=== PATIENT | male | born 1940 | race Caucasian/White ===

== ENCOUNTER 2018-08-10 10:03 | Outpatient (RCR) | payer MEDICARE ==
[~2018-08-10 10:03] MED LIST: CEFP500T4 PO; CHLO4TAB PO; HCT25T PO; LISI40TA PO; MECL-124 PO; ROSU10TA12 PO; SCOP1PAT TD; TRIA16.5 NS
== END 2018-08-10 10:52 | disposition home or self-care (01) ==
PROVIDERS: ATTEND Family Medicine
DX: M51.36 Other intervertebral disc degeneration, lumbar region (principal)

== ENCOUNTER 2018-12-18 08:59 | Emergency (ER) | payer MEDICARE ==
[~2018-12-18] VITALS: Ht 175.3 cm; Wt 77.1 kg
--- OUTSIDE RECORDS SUMMARY | 2018-12-18 09:06 | XMS REPORT | Continuity of Care Document ---
Author Author [facility] Organization [facility] Address Unknown Phone Unavailable Allergies Active Description Code Type Severity Reaction Onset Reported/Identified Relationship to Patient Clinical Status Yes NEOPORACIN [id number] BRANDNAME N /A N/A Yes E.E.S. 200 E.E.S. 200 SEVERE Yes BACTRIM DS SEVERE GI PROBLEMS - DIARRH Yes E.E.S. 200 SEVERE GI PROBLEMS - DIARRH Yes MYCINS MYCINS Unknown N/A 10/02/2012 Medications There is no data. Problems Date Dx Coded Attending Type Code Diagnosis Diagnosed By 08/25/1051 HERRERA BADILLO MD Ot M51.36 OTHER INTERVERTEBRAL DISC DEGENERATION, 03/13/2018 Christine Clements 682.9 CELLULITIS AND ABSCESS OF UNSPECIFIED SITES 03/13/2018 Christine Clements L02.91 CUTANEOUS ABSCESS, UNSPECIFIED 03/13/2018 Christine Clements 682.9 CELLULITIS AND ABSCESS OF UNSPECIFIED SITES 03/13/2018 Christine Clements L02.91 CUTANEOUS ABSCESS, UNSPECIFIED 03/21/2018 HERRERA BADILLO 782.9 OTHER SYMPTOMS INVOLVING SKIN AND INTEGUMENTARY TISSUES 03/21/2018 HERRERA BADILLO P54.5 CUTANEOUS HEMORRHAGE 03/21/2018 HERRERA BADILLO T14.8 OTHER INJURY OF UNSPECIFIED BODY REGION 03/21/2018 HERRERA BADILLO 782.9 OTHER SYMPTOMS INVOLVING SKIN AND INTEGUMENTARY TISSUES 03/21/2018 HERRERA BADILLO P54.5 CUTANEOUS HEMORRHAGE 03/21/2018 HERRERA BADILLO T14.8 OTHER INJURY OF UNSPECIFIED BODY REGION 03/21/2018 HERRERA BADILLO 782.9 OTHER SYMPTOMS INVOLVING SKIN AND INTEGUMENTARY TISSUES 03/21/2018 HERRERA BADILLO P54.5 CUTANEOUS HEMORRHAGE 03/21/2018 HERRERA BADILLO T14.8 OTHER INJURY OF UNSPECIFIED BODY REGION 08/10/2018 HERRERA BADILLO MD L Ot M51.36 OTHER INTERVERTEBRAL DISC DEGENERATION, Procedures There is no data. Results Test Result Range D-Dimer - 11/08/16 09:30 DDimer 139.00 ng/mL 21.00-229.00 PSA Yearly Screen - 11/23/16 11:23 PSA TOTAL 5.1 ng/mL 0.0-4.0 Protime - 03/21/18 17:40 INR 1.0 1.0-4.0 Protime 11.5 Sec 9.9-12.8 PTT - 03/21/18 17:40 PTT 31.8 Sec 26.0-38.0 CBC with Auto Diff - 04/05/18 15:03 Baso% 0.30 % 0.00-2.50 Eos 0.4 K/uL 0.0-0.7 Eos% 6.2 % 0.0-7.0 Hct 38.7 % 42.0-52.0 Hgb 13.4 g/dL 14.0-17.0 Lym 1.45 K/uL 0.60-3.40 Lym% 22.6 % 10.0-50.0 MCH 32.4 pg 27.0-31.2 MCHC 34.6 g/dL 32.0-36.0 MCV 93.7 fL 80.0-97.0 [place]% 7.5 % 0.0-12.0 MPV 12.9 fL 7.4-10.0 [place]% 63.4 % 37.0-80.0 Plt 108 K/uL 150-400 RBC 4.13 M/uL 4.20-5.40 RDW 12.9 % 11.6-14.8 WBC 6.41 K/uL 5.00-10.00 [place] 4.06 K/uL 2.00-6.90 [place] 0.5 K/uL 0.0-0.9 Baso 0.0 K/uL 0.0-0.2 Encounters ACCT No. Visit Date/Time Discharge Status Pt. Type Provider Facility Loc./Unit Complaint [id number] 02/16/2017 14:17:02 02/16/2017 23:59:59 CLS Outpatient [place] [id number] 06/21/2018 13:05:00 06/21/2018 23:59:00 DIS Outpatient HERRERA BADILLO [id number] 04/05/2018 15:01:00 04/05/2018 23:59:00 DIS Outpatient HERRERA BADILLO [id number] 03/21/2018 18:10:00 03/21/2018 23:59:00 DIS Outpatient HERRERA BADILLO [id number] 03/13/2018 11:40:00 03/13/2018 23:59:00 DIS Outpatient Christine Clements [id number] 01/30/2018 09:09:00 01/30/2018 23:59:00 DIS Outpatient Priscila Keating [id number] 06/02/2017 00:00:00 06/02/2017 23:59:00 DIS Outpatient HERRERA BADILLO [id number] 05/16/2017 00:00:00 05/16/2017 23:59:00 DIS Outpatient HERRERA BADILLO [id number] 11/23/2016 11:23:00 11/23/2016 23:59:00 DIS Outpatient HERRERA BADILLO [id number] 11/08/2016 09:40:00 11/08/2016 23:59:00 DIS Outpatient HERRERA BADILLO [id number] 08/10/2018 10:03:00 08/10/2018 10:52:00 DIS Outpatient HERRERA BADILLO MD Via [facility] REHAB CHRONIC LBP; DDD [id number] 11/16/2018 10:25:43 Document Registration [id number] 04/17/2018 14:15:52 Document Registration [id number] 04/05/2018 15:14:47 Document Registration [id number] 10/25/2017 10:07:02 Document Registration
[2018-12-18 09:14] LABS: BILIRUBIN,URINE NEGATIVE (NEGATIVE); CLARITY,URINE CLEAR; COLOR,URINE YELLOW; GLUCOSE, URINE (UA) NEGATIVE (NEGATIVE); KETONES,URINE NEGATIVE (NEGATIVE); LEUKOCYTE ESTERASE ,URINE 2+ (NEGATIVE); NITRITE,URINE NEGATIVE (NEGATIVE); PH,URINE 6 (5-9); PROTEIN,URINE 2+ (NEGATIVE); UROBILINOGEN,URINE NORMAL (NORMAL)
[2018-12-18] MEDS ORDERED: FERR325T5 (09:21)
[2018-12-18] MEDS ORDERED: NS IV 1000 ML 1,000 ML IV SCH (09:27)
[2018-12-18] MEDS ORDERED: cefTRIAXone FOR IV USE 1,000 MG in WATER (STERILE) FOR INJECTION 10 ML IV ONE (09:30)
[2018-12-18 09:35] LABS: BACTERIA,URINE FEW /HPF; RBC,URINE >100 /HPF; SQUAMOUS EPITHELIAL CELL,UR 0-2 /HPF
--- NOTE | 2018-12-18 09:38 | ED GU-Female ---
General Chief Complaint: - Urinary Stated Complaint: PAIN IN LOWER BACK/ LAGOS CATHETER PROBLEMS Nursing Triage Note: AMBULATED TO ROOM 06 WITH URINARY CATH IN PLACE. STATES IT WAS PUT IN TUESDAY EVENING AT [facility] AFTER HAVING A COLONOSCOPY THAT AM AND NOT BEING ABLE TO PEE. Nursing Sepsis Screen: Possible Sepsis Risk Source: patient Exam Limitations: no limitations History of Present Illness Date Seen by Provider: Dec 18, 2018 Time Seen by Provider: 09:03 Initial Comments Patient presents to ER by private conveyance with chief complaint of some right back pain and urinary discomfort. He recently had a colonoscopy looking for a source of his anemia outpatient on , 5 days ago. He then on Tuesday could not urinate so went to the ER and had a [place] catheter placed. He went back to the ER because he saw blood in the urine and said it was probably from the trauma of having a [place] catheter placed. He is in today feeling like he has some subjective chills and fevers feeling flushed and has quite a bit of pain now on his right flank that started up late last night. He has not taken anything for the pain. No Tylenol or Motrin. He does not take aspirin for the past week and a half since his oncologist are working him up for his thrombocytopenia and anemia. The colonoscopy was unremarkable. He follows Dr. Carolina urology and had plans to see him in clinic today or tomorrow but when he called the clinic and inform them of his symptoms they told him to come to the ER instead. He denies a history of prostatism. He also has noticed today that his urine became cloudy. Allergies and Home Medications Allergies Uncoded Allergies: MYCINS (Allergy, Unknown, 10/02/12) Home Medications Cefprozil 500 Mg Tablet, 1 EACH PO BID FOR INFECTION Prescribed by: KAUSHAL MCGARRY on 10/02/122248 Chlorpheniramine Maleate 4 Mg Tablet, 4 MG PO DAILY, (Reported) Hydrochlorothiazide 25 Mg Tablet, 1 EACH PO DAILY, (Reported) Lisinopril 40 Mg Tablet, 40 MG PO DAILY, (Reported) Meclizine Hcl 25 Mg Tab, 1-2 TAB PO Q 4-6 HOURS PRN FOR DIZZINESS Prescribed by: KAUSHAL MCGARRY on 10/02/122248 Rosuvastatin Calcium 10 Mg Tablet, 1 EACH PO DAILY, (Reported) Scopolamine Hcl 1 Patch .72 H Patch.td72, 1 EA TD Q3D FOR DIZZINESS Prescribed by: KAUSHAL MCGARRY on 10/02/122248 Triamcinolone Acetonide 16.5 Gm [place], 16.5 GM NS BID FOR SINUSES Prescribed by: KAUSHAL MCGARRY on 10/02/122248 Patient Home Medication List Home Medication List Reviewed: Yes Review of Systems Review of Systems Constitutional: No chills, No diaphoresis EENTM: No ear discharge, No ear pain Respiratory: No cough, No short of breath Cardiovascular: No edema, No palpitations Gastrointestinal: No abdominal pain, No constipation, No diarrhea, No nausea Genitourinary: denies discharge, denies dysuria Musculoskeletal: No back pain, No joint pain Skin: No dryness, No pruritus, No rash Psychiatric/Neurological: Denies Headache, Denies Numbness Past Ijnkvyz-Qpakms-Kdcdoa Hx Patient Social History Alcohol Use: Denies Use Recreational Drug Use: No Recent Foreign Travel: No Contact w/Someone Who Travel: No Recent Infectious Disease Expo: No Immunizations Up To Date Tetanus Booster (TDap): Unknown Date of Pneumonia Vaccine: Jun 26, 2011 Date of Influenza Vaccine: Jun 26, 2012 Past Medical History Surgeries: Yes (HEART STENT, COLONOSCOPY) Respiratory: No Cardiac: Yes Neurological: No Reproductive Disorders: No Sexually Transmitted Disease: No HIV/AIDS: No Genitourinary: Yes Gastrointestinal: No Musculoskeletal: No Chronic Back Pain Endocrine: No Cataract Loss of Vision: Denies Hearing Impairment: Denies Cancer: No Psychosocial: No Integumentary: No Blood Disorders: No Adverse Reaction/Blood Tranf: No Physical Exam Vital Signs Vital Signs - First Documented 12/18/18 09:00 Temp 95.8 Pulse 96 Resp 16 B/P (MAP) 156/78 (104) Pulse Ox 97 O2 Delivery Room Air Capillary Refill : Less Than 3 Seconds Height, Weight, BMI Height: 5'9.00" Weight: 170lbs. oz. 77.639287mn; BMI Method:Estimated General Appearance: WD/WN, no apparent distress HEENT: PERRL/EOMI, pharynx normal Cardiovascular: normal peripheral pulses, regular rate, rhythm, no edema Respiratory: lungs clear, normal breath sounds, no respiratory distress, no accessory muscle use Gastrointestinal: normal bowel sounds, soft, tenderness (epigastric) Back: normal inspection, no CVA tenderness Extremities: non-tender, normal inspection, no pedal edema, normal capillary refill Neurologic/Psychiatric: alert, normal mood/affect, oriented x 3 Skin: normal color, warm/dry Focused Exam Lactate Level 12/18/18 09:30: Lactic Acid Level 1.30 Lactic Acid Level Laboratory Tests Test 12/18/18 09:30 Lactic Acid Level 1.30 MMOL/L (0.50-2.00) Progress/Results/Core Measures Suspected Sepsis Recent Fever Within 48 Hours: No Infection Criteria Present: Suspected New Infection New/Unexplained Altered Menta: No Sepsis Screen: Possible Sepsis Risk SIRS Temperature:95.8 Pulse: 96 Respiratory Rate: 16 Laboratory Tests 12/18/18 09:30: White Blood Count 5.3 Blood Pressure 156 /78 Mean: 104 12/18/18 09:30: Lactic Acid Level 1.30 Laboratory Tests 12/18/18 09:30: Creatinine 0.92, INR Comment 1.0, Platelet Count 90L, Total Bilirubin 0.5 Results/Orders Lab Results Laboratory Tests Test 12/18/18 09:07 12/18/18 09:30 Range/Units Urine Color YELLOW Urine Clarity CLEAR Urine pH 6 5-9 Urine Specific [place] 1.015 L 1.016-1.022 Urine Protein 2+ H NEGATIVE Urine Glucose (UA) NEGATIVE NEGATIVE Urine Ketones NEGATIVE NEGATIVE Urine Nitrite NEGATIVE NEGATIVE Urine Bilirubin NEGATIVE NEGATIVE Urine Urobilinogen NORMAL NORMAL MG/DL Urine Leukocyte Esterase 2+ H NEGATIVE Urine RBC (Auto) 5+ H NEGATIVE Urine RBC >100 H /HPF Urine WBC 5-10 H /HPF Urine Squamous Epithelial Cells 0-2 /HPF Urine Crystals NONE /LPF Urine Bacteria FEW H /HPF Urine Casts NONE /LPF Urine Mucus NEGATIVE /LPF Urine Culture Indicated YES White Blood Count 5.3 4.3-11.0 10^3/uL Red Blood Count 3.67 L 4.35-5.85 10^6/uL Hemoglobin 11.9 L 13.3-17.7 G/DL Hematocrit 35 L 40-54 % Mean Corpuscular Volume 95 80-99 FL Mean Corpuscular Hemoglobin 32 25-34 PG Mean Corpuscular Hemoglobin Concent 34 32-36 G/DL Red Cell Distribution Width 13.9 10.0-14.5 % Platelet Count 90 L 130-400 10^3/uL Mean Platelet Volume 11.2 H 7.4-10.4 FL Neutrophils (%) (Auto) 71 42-75 % Lymphocytes (%) (Auto) 17 12-44 % Monocytes (%) (Auto) 8 0-12 % Eosinophils (%) (Auto) 4 0-10 % Basophils (%) (Auto) 0 0-10 % Neutrophils # (Auto) 3.8 1.8-7.8 X 10^3 Lymphocytes # (Auto) 0.9 L 1.0-4.0 X 10^3 Monocytes # (Auto) 0.4 0.0-1.0 X 10^3 Eosinophils # (Auto) 0.2 0.0-0.3 10^3/uL Basophils # (Auto) 0.0 0.0-0.1 10^3/uL Prothrombin Time 13.8 12.2-14.7 SEC INR Comment 1.0 0.8-1.4 Activated Partial Thromboplast Time 37 H 24-35 SEC Sodium Level 139 135-145 MMOL/L Potassium Level 3.6 3.6-5.0 MMOL/L Chloride Level 105 98-107 MMOL/L Carbon Dioxide Level 25 21-32 MMOL/L Anion Gap 9 5-14 MMOL/L Blood Urea Nitrogen 13 7-18 MG/DL Creatinine 0.92 0.60-1.30 MG/DL Estimat Glomerular Filtration Rate > 60 BUN/Creatinine Ratio 14 Glucose Level 108 H 70-105 MG/DL Lactic Acid Level 1.30 0.50-2.00 MMOL/L Calcium Level 9.0 8.5-10.1 MG/DL Corrected Calcium 9.0 8.5-10.1 MG/DL Total Bilirubin 0.5 0.1-1.0 MG/DL Aspartate Amino Transf (AST/SGOT) 16 5-34 U/L Alanine Aminotransferase (ALT/SGPT) 14 0-55 U/L Alkaline Phosphatase 82 40-136 U/L Total Protein 6.2 L 6.4-8.2 GM/DL Albumin 4.0 3.2-4.5 GM/DL Lipase 12 8-78 U/L My Orders Orders - ELSI PONCE Ua Culture If Indicated (12/18/18 09:00) Cbc With Automated Diff (12/18/18 09:27) Comprehensive Metabolic Panel (12/18/18 09:27) Blood Culture (12/18/18 09:27) Urine Culture (12/18/18 09:27) Protime With Inr (12/18/18:27) Partial Thromboplastin Time (12/18/18 09:27) Saline Lock/Iv-Start (12/18/18 09:27) Lactic Acid Analyzer (12/18/18 09:27) Ns Iv 1000 Ml (Sodium Chloride 0.9%) (12/18/18 09:27) Ceftriaxone For Iv Use (Rocephin For I (12/18/18 09:30) Ua Culture If Indicated (12/18/18 09:28) Urine Culture (12/18/18 09:07) Lipase (12/18/18 09:40) Medications Given in ED Current Medications Medications Dose Ordered Sig/Marcela Route Start Time Stop Time Status Last Admin Dose Admin Ceftriaxone Sodium 1000 mg/ Sterile Water 10 ml @ 200 mls/hr ONCE ONCE IV 12/18/18 09:30 12/18/18 09:32 DC 12/18/18 09:57 200 MLS/HR Vital Signs/I&O 12/18/18 09:00 Temp 95.8 Pulse 96 Resp 16 B/P (MAP) 156/78 (104) Pulse Ox 97 O2 Delivery Room Air Capillary Refill : Less Than 3 Seconds Blood Pressure Mean: 104 Progress Note : Time: 09:37 Progress Note Mildly elevated heart rate running between 88 and 92. If he has an elevated white count he would qualify for sepsis. We'll get labs, blood culture and give him some Rocephin for anticipated bladder infection. We'll also check a lipase. Consults Consults : Consulting Physician: TARIQ CAROLINA MD Consults Notes Discussed the case and he recommends that we initiate Flomax. It may take up to 3 days for Flomax to exert and the fact so we could leave the [place] catheter in until he is seen in the clinic on Tuesday or or weak and have it out today is not tender be a higher risk for having a reinsertion of a catheter. The trade-off would be the patient would have a less risk of worsening infection. He agrees with Rocephin and initiating oral antibiotics and outpatient follow-up in 2-3 days. After discussing this plan with the patient the patient would elect to have the [place] catheter out today as he finds the risk of infection more worrisome reinsertion of [place] catheter. Departure Impression Primary Impression: Catheter-associated urinary tract infection Qualified Codes: T83.511A - Infection and inflammatory reaction due to indwelling urethral catheter, initial encounter; N39.0 - Urinary tract infection , site not specified Additional Impressions: Urinary retention Thrombocytopenia Disposition: 01 HOME, SELF-CARE Condition: Stable Departure-Patient Inst. Decision time for Depature: 10:22 Referrals: HERRERA BADILLO MD (PCP) Primary Care Physician TARIQ CAROLINA MD Patient Instructions: Urinary Tract Infection, Adult (DC), Urinary Obstruction (DC) Add. Discharge Instructions: Drink plenty of fluids. Call Dr. Carolina and request an appointment on Tuesday or of this week to follow-up. 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 Carolina. If you have difficulty urinating or you like you cannot empty your bladder then you should return to the nearest ER for reevaluation. If you begin to have fevers, nausea vomiting or severe abdominal pain you should also return to the nearest ER for further evaluation. Use Tylenol 1000 mg every 8 hours as necessary for pain. All discharge instructions reviewed with patient and/or family. Voiced understanding. Scripts Cephalexin (Cephalexin) 500 Mg Tablet 500 MG PO BID for 7 Days, #14 TAB 0 Refills Prov: ELSI PONCE 12/18/18 Tamsulosin HCl (Flomax) 0.4 Mg Cap 0.4 MG PO HS for 14 Days, #14 CAP 0 Refills Prov: ELSI PONCE 12/18/18 ELSI PONCE Dec 18, 2018 09:38
[2018-12-18 09:44] LABS: BASOPHILS % (AUTO) 0 % (0-10); EOSINOPHILS # (AUTO) 0.2 10^3/uL (0.0-0.3); EOSINOPHILS % (AUTO) 4 % (0-10); HEMATOCRIT 35 % (40-54); HEMOGLOBIN 11.9 G/DL (13.3-17.7); LYMPHOCYTES # (AUTO) 0.9 X 10^3 (1.0-4.0); LYMPHOCYTES % (AUTO) 17 % (12-44); MEAN CORPUSCULAR HEMOGLOBIN 32 PG (25-34); MEAN CORPUSCULAR HGB CONC 34 G/DL (32-36); MEAN CORPUSCULAR VOLUME 95 FL (80-99); MEAN PLATELET VOLUME 11.2 FL (7.4-10.4); MONOCYTES # (AUTO) 0.4 X 10^3 (0.0-1.0); MONOCYTES % (AUTO) 8 % (0-12); NEUTROPHILS # (AUTO) 3.8 X 10^3 (1.8-7.8); NEUTROPHILS % (AUTO) 71 % (42-75); PLATELET COUNT 90 10^3/uL (130-400); RED CELL DISTRIBUTION WIDTH 13.9 % (10.0-14.5); WHITE BLOOD COUNT 5.3 10^3/uL (4.3-11.0)
[2018-12-18 09:57] LABS: PROTHROMBIN TIME PATIENT 13.8 SEC (12.2-14.7)
--- NOTE | 2018-12-18 10:00 | NUR ---
WARM BLANKET AND REMOTE GIVEN TO PT.
[2018-12-18 10:04] LABS: ALANINE AMINOTRANSFERASE 14 U/L (0-55); ALKALINE PHOSPHATASE 82 U/L (40-136); BILIRUBIN,TOTAL 0.5 MG/DL (0.1-1.0); BUN/CREATININE RATIO 14; CARBON DIOXIDE 25 MMOL/L (21-32); CHLORIDE 105 MMOL/L (98-107); CREATININE SERUM 0.92 MG/DL (0.60-1.30); GFR ESTIMATED > 60; GLUCOSE 108 MG/DL (70-105); LIPASE 12 U/L (8-78); POTASSIUM 3.6 MMOL/L (3.6-5.0); SODIUM 139 MMOL/L (135-145); TOTAL PROTEIN 6.2 GM/DL (6.4-8.2)
--- NOTE | 2018-12-18 10:20 | NUR ---
IN ROOM TALKING TO PT AT THIS TIME.
[2018-12-18] MEDS ORDERED: TAMS0.4C98 PO (10:25)
[2018-12-18] MEDS ORDERED: CEPH500T PO (10:25)
[2018-12-18 10:37] VITALS: BP 138/78
== END 2018-12-18 10:37 | disposition home or self-care (01) ==
LOC: EDUNIT# 08:59 → ER 09:02
DX: T83.511A Infection and inflammatory reaction due to indwelling urethral catheter, initial encounter (principal); N39.0 Urinary tract infection, site not specified; D69.6 Thrombocytopenia, unspecified; Z88.1 Allergy status to other antibiotic agents; Z95.5 Presence of coronary angioplasty implant and graft
CPT/HCPCS: 36415; 80053; 81000; 83605; 83690; 85025; 85610; 85730; 87040; 87088

== ENCOUNTER 2019-03-23 08:34 | Inpatient (IN) | payer MEDICARE ==
[~2019-03-23] VITALS: Ht 190.5 cm; Wt 101.7 kg
[~2019-03-23 08:34] MED LIST changes: +CEPH500T PO; +FERR325T5 PO; +TAMS0.4C98 PO
--- OUTSIDE RECORDS SUMMARY | 2019-03-23 08:39 | XMS REPORT | Continuity of Care Document ---
Author Organization Unknown Address Unknown Allergies Active Description Code Type Severity Reaction Onset Reported/Identified Relationship to Patient Clinical Status Yes NEOPORACIN [id number] BRANDNAME N/A N/A Yes E.E.S. 200 E.E.S. 200 SEVERE Yes BACTRIM DS SEVERE GI PROBLEMS - DIARRH Yes E.E.S. 200 SEVERE GI PROBLEMS - DIARRH Yes MYCINS MYCINS Unknown N/A 10/02/2012 Medications There is no data. Problems Date Dx Coded Attending Type Code Diagnosis Diagnosed By 08/25/1051 ABY MICHELE, HERRERA Parker Ot M51.36 OTHER INTERVERTEBRAL DISC DEGENERATION, 03/13/2018 Christine lCements 682.9 CELLULITIS AND ABSCESS OF UNSPECIFIED SITES [...] OTHER INJURY OF UNSPECIFIED BODY REGION 08/10/2018 ABY MICHELE, HERRERA L Ot M51.36 OTHER INTERVERTEBRAL DISC DEGENERATION, 12/18/2018 ELSI PONCE MD Ot D69.6 THROMBOCYTOPENIA, UNSPECIFIED 12/18/2018 ELSI PONCE MD Ot M54.5 LOW BACK PAIN 12/18/2018 ELSI PONCE MD Ot N39.0 URINARY TRACT INFECTION, SITE NOT SPECIF 12/18/2018 ELSI PONCE MD Ot T83.511A I/I REACT D/T INDWELLING URETHRAL CATHET 12/18/2018 ELSI PONCE MD Ot Z88.1 ALLERGY STATUS TO OTHER ANTIBIOTIC AGENT 12/18/2018 ELSI PONCE MD Ot Z95.5 PRESENCE OF CORONARY ANGIOPLASTY IMPLANT 12/20/2018 ELSI PONCE MD Ot D69.6 THROMBOCYTOPENIA, UNSPECIFIED 12/20/2018 ELSI PONCE MD Ot M54.5 LOW BACK PAIN 12/20/2018 ELSI PONCE MD Ot N39.0 URINARY TRACT INFECTION, SITE NOT SPECIF 12/20/2018 ELSI PONCE MD Ot T83.511A I/I REACT D/T INDWELLING URETHRAL CATHET 12/20/2018 ELSI PONCE MD Ot Z88.1 ALLERGY STATUS TO OTHER ANTIBIOTIC AGENT 12/20/2018 ELSI PONCE MD Ot Z95.5 PRESENCE OF CORONARY ANGIOPLASTY IMPLANT Procedures There is no data. Results Test [...] 34.6 g/dL 32.0-36.0 MCV 93.7 fL 80.0-97.0 [place]% 7.5 % 0.0-12.0 MPV 12.9 fL 7.4-10.0 [place]% 63.4 % 37.0-80.0 Plt 108 K/uL 150-400 RBC 4.13 M/uL 4.20-5.40 RDW 12.9 % 11.6-14.8 WBC 6.41 K/uL 5.00-10.00 [place] 4.06 K/uL 2.00-6.90 [place] 0.5 K/uL 0.0-0.9 Baso 0.0 K/uL 0.0-0.2 Complete urinalysis with reflex to culture - 12/18/18 09:07 Urine color determination YELLOW NRG Urine clarity determination CLEAR NRG Urine pH measurement by test strip 6 5-9 Specific gravity of urine by test strip 1.015 1.016-1.022 Urine protein assay by test strip, semi-quantitative 2+ NEGATIVE Urine glucose detection by automated test strip NEGATIVE NEGATIVE Erythrocytes detection in urine sediment by light microscopy 5+ NEGATIVE Urine ketones detection by automated test strip NEGATIVE NEGATIVE Urine nitrite detection by test strip NEGATIVE NEGATIVE Urine total bilirubin detection by test strip NEGATIVE NEGATIVE Urine urobilinogen measurement by automated test strip (mass/volume) NORMAL NORMAL Urine leukocyte esterase detection by dipstick 2+ NEGATIVE Automated urine sediment erythrocyte count by microscopy (number/high power field) > [HPF] NRG Automated urine sediment leukocyte count by microscopy (number/high power field) [HPF] NRG Bacteria detection in urine sediment by light microscopy FEW NRG Squamous epithelial cells detection in urine sediment by light microscopy 0-2 NRG Crystals detection in urine sediment by light microscopy NONE NRG Casts detection in urine sediment by light microscopy NONE NRG Mucus detection in urine sediment by light microscopy NEGATIVE NRG Complete urinalysis with reflex to culture YES NRG Bacterial urine culture - 12/18/18 09:07 Bacterial urine culture NG NRG Complete blood count (CBC) with automated white blood cell (WBC) differential - 12/18/18 09:30 Blood leukocytes automated count (number/volume) 5.3 10*3/uL 4.3-11.0 Blood erythrocytes automated count (number/volume) 3.67 10*6/uL 4.35-5.85 Venous blood hemoglobin measurement (mass/volume) 11.9 g/dL 13.3-17.7 Blood hematocrit (volume fraction) 35 % 40-54 Automated erythrocyte mean corpuscular volume 95 [foz_us] 80-99 Automated erythrocyte mean corpuscular hemoglobin (mass per erythrocyte) 32 pg 25-34 Automated erythrocyte mean corpuscular hemoglobin concentration measurement (mass/volume) 34 g/dL 32-36 Automated erythrocyte distribution width ratio 13.9 % 10.0- 14.5 Automated blood platelet count (count/volume) 90 10*3/uL 130- 400 Automated blood platelet mean volume measurement 11.2 [foz_us] 7.4-10.4 Automated blood neutrophils/100 leukocytes 71 % 42-75 Automated blood lymphocytes/100 leukocytes 17 % 12-44 Blood monocytes/100 leukocytes 8 % 0-12 Automated blood eosinophils/100 leukocytes 4 % 0-10 Automated blood basophils/100 leukocytes 0 % 0-10 Blood neutrophils automated count (number/volume) 3.8 10*3 1.8-7.8 Blood lymphocytes automated count (number/volume) 0.9 10*3 1.0-4.0 Blood monocytes automated count (number/volume) 0.4 10*3 0.0- 1.0 Automated eosinophil count 0.2 10*3/uL 0.0-0.3 Automated blood basophil count (count/volume) 0.0 10*3/uL 0.0-0.1 Blood lactic acid measurement (moles/volume) - 12/18/18 09:30 Blood lactic acid measurement (moles/volume) 1.30 mmol/L 0.50- 2.00 PT panel in platelet poor plasma by coagulation assay - 12/18/18 09:30 Prothrombin time (PT) in platelet poor plasma by coagulation assay 13.8 s 12.2-14.7 INR in platelet poor plasma or blood by coagulation assay 1.0 0.8-1.4 Activated partial thromboplastin time (aPTT) in platelet poor plasma bycoagulation assay - 12/18/18 09:30 Activated partial thromboplastin time (aPTT) in platelet poor plasma bycoagulation assay 37 s 24-35 Comprehensive metabolic panel - 12/18/18 09:30 Serum or plasma sodium measurement (moles/volume) 139 mmol/L 135-145 Serum or plasma potassium measurement (moles/volume) 3.6 mmol/L 3.6-5.0 Serum or plasma chloride measurement (moles/volume) 105 mmol/L 98-107 Carbon dioxide 25 mmol/L 21-32 Serum or plasma anion gap determination (moles/volume) 9 mmol/L 5-14 Serum or plasma urea nitrogen measurement (mass/volume) 13 mg/dL 7-18 Serum or plasma creatinine measurement (mass/volume) 0.92 mg/dL 0.60-1.30 Serum or plasma urea nitrogen/creatinine mass ratio 14 NRG Serum or plasma creatinine measurement with calculation of estimated glomerular filtration rate > NRG Serum or plasma glucose measurement (mass/volume) 108 mg/dL 70-105 Serum or plasma calcium measurement (mass/volume) 9.0 mg/dL 8.5-10.1 Serum or plasma total bilirubin measurement (mass/volume) 0.5 mg/dL 0.1-1.0 Serum or plasma alkaline phosphatase measurement (enzymatic activity/volume) 82 U/L 40-136 Serum or plasma aspartate aminotransferase measurement (enzymatic activity/volume) 16 U/L 5-34 Serum or plasma alanine aminotransferase measurement (enzymatic activity/volume) 14 U/L 0-55 Serum or plasma protein measurement (mass/volume) 6.2 g/dL 6.4-8.2 Serum or plasma albumin measurement (mass/volume) 4.0 g/dL 3.2-4.5 CALCIUM CORRECTED 9.0 mg/dL 8.5-10.1 Lipase - 12/18/18 09:30 Lipase 12 U/L 8-78 Bacterial blood culture - 12/18/18 09:30 Bacterial blood culture NG NRG Bacterial blood culture - 12/18/18 09:50 Bacterial blood culture NG NRG Encounters ACCT No. Visit Date/Time Discharge Status Pt. Type Provider Facility Loc./Unit Complaint [id number] 02/16/2017 14:17:02 02/16/2017 23:59:59 CLS Outpatient Janes Can [id number] 06/21/2018 13:05:00 06/21/2018 23:59:00 DIS Outpatient HERRERA BADILLO [id number] 04/05/2018 15:01:00 04/05/2018 23:59:00 DIS Outpatient BADILLO HERRERA [id number] 03/21/2018 18:10:00 03/21/2018 23:59:00 DIS Outpatient HERRERA BADILLO [id number] 03/13/2018 11:40:00 03/13/2018 23:59:00 DIS Outpatient Christine Clements [id number] 01/30/2018 09:09:00 01/30/2018 23:59:00 DIS Outpatient Priscila Keating [id number] 06/02/2017 00:00:00 06/02/2017 23:59:00 DIS Outpatient HERRERA BADILLO [id number] 05/16/2017 00:00:00 05/16/2017 23:59:00 DIS Outpatient HERRERA BADILLO [id number] 11/23/2016 11:23:00 11/23/2016 23:59:00 DIS Outpatient HERRERA BADILLO [id number] 11/08/2016 09:40:00 11/08/2016 23:59:00 DIS Outpatient HERRERA BADILLO [id number] 12/18/2018 09:02:00 12/18/2018 10:37:00 DIS Emergency ROSARIO MICHELE, ELSI Bowser [facility] ER PAIN IN LOWER BACK/ LAGOS CATHETER PROBLEMS [id number] 08/10/2018 10:03:00 08/10/2018 10:52:00 DIS Outpatient HERRERA BADILLO MD [facility] REHAB CHRONIC LBP; DDD [id number] 11/16/2018 10:25:43 Document Registration [id number] 04/17/2018 14:15:52 Document Registration [id number] 04/05/2018 15:14:47 Document Registration [id number] 10/25/2017 10:07:02 Document Registration
[2019-03-23 09:33] LABS: BASOPHILS % (AUTO) 1 % (0-10); EOSINOPHILS # (AUTO) 0.3 10^3/uL (0.0-0.3); EOSINOPHILS % (AUTO) 4 % (0-10); HEMATOCRIT 41 % (40-54); HEMOGLOBIN 14.1 G/DL (13.3-17.7); LYMPHOCYTES % (AUTO) 17 % (12-44); MEAN CORPUSCULAR HEMOGLOBIN 32 PG (25-34); MEAN CORPUSCULAR HGB CONC 35 G/DL (32-36); MEAN CORPUSCULAR VOLUME 93 FL (80-99); MEAN PLATELET VOLUME 11.8 FL (7.4-10.4); MONOCYTES # (AUTO) 0.5 X 10^3 (0.0-1.0); MONOCYTES % (AUTO) 9 % (0-12); NEUTROPHILS # (AUTO) 4.1 X 10^3 (1.8-7.8); NEUTROPHILS % (AUTO) 69 % (42-75); PLATELET COUNT 113 10^3/uL (130-400); RED CELL DISTRIBUTION WIDTH 13.9 % (10.0-14.5); WHITE BLOOD COUNT 5.9 10^3/uL (4.3-11.0)
[2019-03-23] MEDS ORDERED: LORA10CA PO (09:38)
[2019-03-23] MEDS ORDERED: ACET-2267 PO (09:38)
[2019-03-23] MEDS ORDERED: RANI150T46 PO (09:38)
[2019-03-23] MEDS ORDERED: FINA5TAB PO (09:38)
[2019-03-23] MEDS ORDERED: DOXA2TAB PO (09:38)
[2019-03-23] MEDS ORDERED: NAPR220C11 PO (09:38)
[2019-03-23 09:44] LABS: ALANINE AMINOTRANSFERASE 19 U/L (0-55); ALBUMIN 4.2 GM/DL (3.2-4.5); ALKALINE PHOSPHATASE 72 U/L (40-136); BILIRUBIN,TOTAL 0.4 MG/DL (0.1-1.0); BUN/CREATININE RATIO 29; CALCIUM 9.3 MG/DL (8.5-10.1); CARBON DIOXIDE 21 MMOL/L (21-32); CHLORIDE 105 MMOL/L (98-107); CREATININE SERUM 0.98 MG/DL (0.60-1.30); GFR ESTIMATED > 60; GLUCOSE 108 MG/DL (70-105); POTASSIUM 4.1 MMOL/L (3.6-5.0); SODIUM 137 MMOL/L (135-145); TOTAL PROTEIN 6.5 GM/DL (6.4-8.2)
[2019-03-23] MEDS ORDERED: LIDOCAINE UROJET 2% GEL 10 ML PKG TOP ONE (09:45)
[2019-03-23] MEDS ORDERED: fentaNYL INJECTION 100 MCG/2 ML AMP IVP STA (09:45)
[2019-03-23 09:59] LABS: BILIRUBIN,URINE NEGATIVE (NEGATIVE); CLARITY,URINE BLOODY; COLOR,URINE RED; GLUCOSE, URINE (UA) NEGATIVE (NEGATIVE); KETONES,URINE NEGATIVE (NEGATIVE); LEUKOCYTE ESTERASE ,URINE NEGATIVE (NEGATIVE); NITRITE,URINE NEGATIVE (NEGATIVE); PH,URINE 7 (5-9); PROTEIN,URINE 4+ (NEGATIVE); UROBILINOGEN,URINE NORMAL (NORMAL)
--- NOTE | 2019-03-23 10:02 | ED GU-Male ---
General Chief Complaint: - Urinary Stated Complaint: BLOOD IN URINE Nursing Triage Note: PT PRESENTS TO ED WITH COMPLAINTS OF BLOOD IN HIS URINE SINCE TUESDAY NIGHT. PT REPORTS IT HAS PROGRESSIVELY GOTTEN WORSE AND NOTICED BLOOD CLOTS IN HIS URINE TODAY. PT ALSO REPORTS INTERMITTENT R FLANK PAIN X 2 DAYS. Source: patient Exam Limitations: no limitations (ERNESTINA ROMERO MEDICAL STUDENT) History of Present Illness Date Seen by Provider: Mar 23, 2019 Time Seen by Provider: 09:30 Initial Comments Pt presents to ED this morning c/o significant blood in his urine since Tuesday night. He waited until today to come in because he was in [place] this week and hoped to get an appointment with Dr. Borrero. He is in no appreciable pain, just notes some slight bladder irritation and occasional dull right flank pain. Pt reports that he also had blood in his urine in November 2018, which was suspected to be a UTI. After treatment, the bloody urine resolved and he has had no episodes until this one. He describes today's urine as far more bloody than in November, even noting blood clots this morning. Reports no inciting event or trauma. Denies urinary urgency, burning, or fever. Denies chest pain, SOB, or abdominal pain. Pt takes low dose aspirin every other day, but denies the use of blood thinners. He does have a long history of thrombocytopenia, which has been extensively worked up by oncology. Timing/Duration: week, getting worse Severity/Quality: severe (amount of blood), full Location: suprapubic, right flank Radiation: none Activities at Onset: none Prior Genitourinary Problems: similar symptoms (blood in urine in November 2018) Associated Symptoms: No dysuria, No fever/chills, No loss of bladder control, No urinary frequency (ERNESTINA ROMERO MEDICAL STUDENT) Modifying Factors: Improves With Other (no exacerbating or relieving factors) (KEVAN MARAVILLA MD) Allergies and Home Medications Allergies Uncoded Allergies: MYCINS (Allergy, Unknown, 10/02/12) Home Medications Cefprozil 500 Mg Tablet, 1 EACH PO BID FOR INFECTION Prescribed by: KAUSHAL MCGARRY on 10/02/12 3443 Cephalexin 500 Mg Tablet, 500 MG PO BID Prescribed by: ELSI PONCE on 12/18/18 1025 Chlorpheniramine Maleate 4 Mg Tablet, 4 MG PO DAILY, (Reported) Hydrochlorothiazide 25 Mg Tablet, 1 EACH PO DAILY, (Reported) Lisinopril 40 Mg Tablet, 40 MG PO DAILY, (Reported) Meclizine Hcl 25 Mg Tab, 1-2 TAB PO Q 4-6 HOURS PRN FOR DIZZINESS Prescribed by: KAUSHAL MCGARRY on 10/02/122248 Rosuvastatin Calcium 10 Mg Tablet, 1 EACH PO DAILY, (Reported) Scopolamine Hcl 1 Patch .72 H Patch.td72, 1 EA TD Q3D FOR DIZZINESS Prescribed by: KAUSHAL MCGARRY on 10/02/122248 Tamsulosin HCl 0.4 Mg Cap, 0.4 MG PO HS Prescribed by: ELSI PONCE on 12/18/18 1025 Triamcinolone Acetonide 16.5 Gm Farber, 16.5 GM NS BID FOR SINUSES Prescribed by: KAUSHAL MCGARRY on 10/02/122248 Patient Home Medication List Home Medication List Reviewed: Yes (ERNESTINA ROMERO MEDICAL STUDENT) Home Medication List Reviewed: Yes (KEVAN MARAVILLA MD) Review of Systems Review of Systems Constitutional: No chills, No fever EENTM: no symptoms reported Respiratory: No short of breath Cardiovascular: No chest pain Gastrointestinal: No abdominal pain, No constipation, No diarrhea, No nausea, No vomiting Genitourinary: denies dysuria; hematuria (gross); denies urgency Musculoskeletal: back pain (right flank pain) Skin: no symptoms reported Psychiatric/Neurological: No Symptoms Reported Endocrine: No Symptoms Reported Hematologic/Lymphatic: No Symptoms Reported (ERNESTINA ROMERO MEDICAL STUDENT) All Other Systemes Reviewed Negative Unless Noted: Yes (KEVAN MARAVILLA MD) Past Kiskdrt-Xrsbch-Dmrwrk Hx Past Med/Social Hx: Reviewed Nursing Past Med/Soc Hx (KEVAN MARAVILLA MD) Patient Social History Alcohol Use: Denies Use Recreational Drug Use: No Smoking Status: Current Everyday Smoker (63 yr Hx; 1/2 ppd) Type Used: Cigarettes 2nd Hand Smoke Exposure: No Recent Foreign Travel: No Contact w/Someone Who Travel: No Recent Infectious Disease Expo: No (ERNESTINA ROMERO MEDICAL STUDENT) Immunizations Up To Date Tetanus Booster (TDap): Unknown Date of Pneumonia Vaccine: Jun 26, 2011 Date of Influenza Vaccine: Jun 26, 2012 (ERNESTINA ROMERO MEDICAL STUDENT) Past Medical History Surgeries: Yes (HEART STENT, COLONOSCOPY, BACK, BLOOD CLOT REMOVED FROM R LEG, HAND) Cardiac (stent), Gallbladder, Orthopedic Respiratory: No Cardiac: Yes High Cholesterol, Hypertension Neurological: No Reproductive Disorders: No Sexually Transmitted Disease: No HIV/AIDS: No Genitourinary: Yes Prostate Problems (BPH), Bladder Infection Gastrointestinal: No Musculoskeletal: No Chronic Back Pain Endocrine: No Cataract Loss of Vision: Denies Hearing Impairment: Denies Cancer: No Psychosocial: No Integumentary: No Blood Disorders: No Adverse Reaction/Blood Tranf: No (ERNESTINA ROMERO MEDICAL STUDENT) Family Medical History Reviewed Nursing Family Hx (KEVAN MARAVILLA MD) Physical Exam Vital Signs Vital Signs - First Documented 03/23/19 09:25 Temp 97.8 Pulse 82 Resp 20 B/P (MAP) 140/70 (93) Pulse Ox 97 (KEVAN MARAVILLA MD) Vital Signs Capillary Refill : Less Than 3 Seconds (ERNESTINA ROMERO MEDICAL STUDENT) Height, Weight, BMI Height: 6'3.00" Weight: 225lbs. oz. 102.376464kd; BMI Method:Stated General Appearance: no apparent distress, other (tearful) HEENT: PERRL/EOMI, pharynx normal Neck: full range of motion, supple Cardiovascular: normal peripheral pulses, regular rate, rhythm, no murmur Respiratory: lungs clear, normal breath sounds Gastrointestinal: normal bowel sounds, non tender Genital/Rectal: normal genital exam; No blood at urethral meatus Back: no CVA tenderness (bilaterally), no vertebral tenderness Extremities: non-tender, no pedal edema Neurologic/Psychiatric: alert, oriented x 3 Skin: normal color, warm/dry (ERNESTNIA ROMERO MEDICAL STUDENT) General Appearance: WD/WN, no apparent distress, other (tearful) Cardiovascular: regular rate, rhythm, no murmur Respiratory: lungs clear, normal breath sounds Gastrointestinal: soft, other (mild suprapubic tenderness) Neurologic/Psychiatric: alert, oriented x 3 (KEVAN MARAVILLA MD) Progress/Results/Core Measures Suspected Sepsis Recent Fever Within 48 Hours: No Infection Criteria Present: None New/Unexplained Altered Menta: No Sepsis Screen: No Definite Risk SIRS Temperature:97.8 Pulse: 82 Respiratory Rate: 20 Laboratory Tests 03/23/19 08:51: White Blood Count 5.9 Blood Pressure 140 /70 Mean: 93 Laboratory Tests 03/23/19 08:51: Creatinine 0.98, Platelet Count 113L, Total Bilirubin 0.4 (ERNESTINA ROMERO MEDICAL STUDENT) Results/Orders Lab Results Laboratory Tests Test 03/23/19 08:51 03/23/19 09:23 Range/Units White Blood Count 5.9 4.3-11.0 10^3/uL Red Blood Count 4.42 4.35-5.85 10^6/uL Hemoglobin 14.1 13.3-17.7 G/DL Hematocrit 41 40-54 % Mean Corpuscular Volume 93 80-99 FL Mean Corpuscular Hemoglobin 32 25-34 PG Mean Corpuscular Hemoglobin Concent 35 32-36 G/DL Red Cell Distribution Width 13.9 10.0-14.5 % Platelet Count 113 L 130-400 10^3/uL Mean Platelet Volume 11.8 H 7.4-10.4 FL Neutrophils (%) (Auto) 69 42-75 % Lymphocytes (%) (Auto) 17 12-44 % Monocytes (%) (Auto) 9 0-12 % Eosinophils (%) (Auto) 4 0-10 % Basophils (%) (Auto) 1 0-10 % Neutrophils # (Auto) 4.1 1.8-7.8 X 10^3 Lymphocytes # (Auto) 1.0 1.0-4.0 X 10^3 Monocytes # (Auto) 0.5 0.0-1.0 X 10^3 Eosinophils # (Auto) 0.3 0.0-0.3 10^3/uL Basophils # (Auto) 0.0 0.0-0.1 10^3/uL Sodium Level 137 135-145 MMOL/L Potassium Level 4.1 3.6-5.0 MMOL/L Chloride Level 105 98-107 MMOL/L Carbon Dioxide Level 21 21-32 MMOL/L Anion Gap 11 5-14 MMOL/L Blood Urea Nitrogen 28 H 7-18 MG/DL Creatinine 0.98 0.60-1.30 MG/DL Estimat Glomerular Filtration Rate > 60 BUN/Creatinine Ratio 29 Glucose Level 108 H 70-105 MG/DL Calcium Level 9.3 8.5-10.1 MG/DL Corrected Calcium 9.1 8.5-10.1 MG/DL Total Bilirubin 0.4 0.1-1.0 MG/DL Aspartate Amino Transf (AST/SGOT) 17 5-34 U/L Alanine Aminotransferase (ALT/SGPT) 19 0-55 U/L Alkaline Phosphatase 72 40-136 U/L Total Protein 6.5 6.4-8.2 GM/DL Albumin 4.2 3.2-4.5 GM/DL Urine Color RED H Urine Clarity BLOODY H Urine pH 7 5-9 Urine Specific [place] 1.015 L 1.016-1.022 Urine Protein 4+ NEGATIVE Urine Glucose (UA) NEGATIVE NEGATIVE Urine Ketones NEGATIVE NEGATIVE Urine Nitrite NEGATIVE NEGATIVE Urine Bilirubin NEGATIVE NEGATIVE Urine Urobilinogen NORMAL NORMAL MG/DL Urine Leukocyte Esterase NEGATIVE NEGATIVE Urine RBC (Auto) 4+ H NEGATIVE Urine RBC TNTC H /HPF Urine WBC 5-10 H /HPF Urine Crystals NONE /LPF Urine Bacteria NEGATIVE /HPF Urine Casts NONE /LPF Urine Mucus NEGATIVE /LPF Urine Culture Indicated NO (KEVAN MARAVILLA MD) My Orders Orders - KEVAN MARAVILLA MD Ua Culture If Indicated (03/23/19 08:45) Cbc With Automated Diff (03/23/19 09:24) Comprehensive Metabolic Panel (03/23/19 09:24) Ed Iv/Invasive Line Start (03/23/19 09:24) Lidocaine 2% (Urojet) (Xylocaine Urojet) (03/23/19 09:45) Fentanyl Injection (Sublimaze Injection (03/23/19 09:45) Ed Iv/Invasive Line Start (03/23/19 10:43) Ns Iv 500 Ml (Sodium Chloride 0.9%) (03/23/19 10:43) Urine Culture (03/23/19 10:43) Ceftriaxone For Iv Use (Rocephin For I (03/23/19 10:45) (KEVAN MARAVILLA MD) Medications Given in ED Current Medications Medications Dose Ordered Sig/Marcela Route Start Time Stop Time Status Last Admin Dose Admin Ceftriaxone Sodium 1000 mg/ Sterile Water 10 ml @ 200 mls/hr ONCE ONCE IV 03/23/19 10:45 03/23/19 10:47 DC 03/23/19 10:58 200 MLS/HR Lidocaine HCl 10 ml ONCE ONCE TOP 03/23/19 09:45 03/23/19 09:50 DC 6/28/19 09:59 10 ML Sodium Chloride 500 ml @ 0 mls/hr Q0M ONCE IV 03/23/19 10:43 03/23/19 10:44 DC 03/23/19 10:58 0 MLS/HR (KEVAN MARAVILLA MD) Vital Signs/I&O 03/23/19 09:25 Temp 97.8 Pulse 82 Resp 20 B/P (MAP) 140/70 (93) Pulse Ox 97 (KEVAN MARAVILLA MD) Vital Signs/I&O Capillary Refill : Less Than 3 Seconds (ERNESTINA ROMERO MEDICAL STUDENT) Blood Pressure Mean: 93 Progress Note : Progress Note I had seen and evaluated the patient and agree with above except as indicated. Directed the plan of care. Patient is here with gross hematuria over the last 2 days with much worse this morning. Does complain of some suprapubic tenderness. Did have history of hematuria 3 months ago that resolved. Follows with Dr. Borrero. IV, labs, UA and normal saline 1 L bolus IV ordered. Patient had gross hematuria on exam. I did discuss this with him at length. Decision for continuous bladder irrigation made. We did pretreat with Urojet. Fentanyl 50 g IV for pain. Continuous bladder catheter initiated. I did discuss the case with Dr. Borrero 0945 and he agrees to see him in consult. He is recommending antibiotics just in case. We will go ahead and get urine culture. 1200: We did have to replace the three-way catheter as it clotted with blood clots. He is continuing his continue bladder irrigation. No indication of infection currently but we will treat with Rocephin. Urine culture pending. I did discuss the case with Dr. Collazo and he accepts patient for admission with Dr. Borrero on consult. Discussed with patient who agrees with plan. Overall much more comfortable currently. Blood cultures and lactic acid not done as there are no indications for sepsis currently. (KEVAN MARAVILLA MD) Departure Communication (Admissions) Time/Spoke to Admitting Phy: 12:00 Time/Spoke to Consulting Phy: 09:45 (KEVAN MARAVILLA MD) Impression Primary Impression: Gross hematuria Disposition: ADMITTED INPATIENT Condition: Stable Admissions Decision to Admit Reason: Admit from ER (General) Decision to Admit/Date: Mar 23, 2019 Time/Decision to Admit Time: 09:45 (KEVAN MARAVILLA MD) Departure-Patient Inst. Referrals: HERRERA BADILLO MD (PCP) Primary Care Physician ERNESTINA ROMERO MEDICAL STUDENT Mar 23, 2019 10:02 KEVAN MARAVILLA MD Mar 23, 2019 12:21
[2019-03-23 10:22] LABS: BACTERIA,URINE NEGATIVE /HPF; RBC,URINE TNTC /HPF
[2019-03-23] MEDS ORDERED: NS IV 500 ML 500 ML IV ONE (10:43)
[2019-03-23] MEDS ORDERED: cefTRIAXone FOR IV USE 1,000 MG in WATER (STERILE) FOR INJECTION 10 ML IV ONE (10:45)
--- NOTE | 2019-03-23 11:00 | NUR ---
PT REPORTS TIGHTNESS/PRESSURE IN ABDOMINAL/PELVIC AREA. MINIMAL FLOW NOTICED ON LAGOS DRAINAGE. 60 ML NS USED TO FLUSH PT CATH. 60 ML RED URINE/BLOOD CLOTS EXTRACTED. PT LAGOS FLOWING AGAIN.
--- NOTE | 2019-03-23 11:35 | NUR ---
Fan COMBS APRN AT PT BEDSIDE AT THIS TIME. ATTEMPT TO IRRIGATE PT LAGOS WITH 30 ML NS AT THIS TIME. UNABLE TO WITHDRAW SUSPECTED CLOT. SETTING UP FOR REINSERTION OF 22FR 3 WAY LAGOS.
--- NOTE | 2019-03-23 11:45 | NUR ---
TOTAL OF 3500 ML LIGHT RED URINE DRAINED FROM PT LAGOS BAG.
--- NOTE | 2019-03-23 11:45 | NUR ---
FIRST 3000 ML FOR IRRIGATION DONE AT THIS TIME.
--- NOTE | 2019-03-23 11:50 | NUR ---
SECOND 3000 ML BAG OF NS STARTED FOR IRRIGATION.
--- NOTE | 2019-03-23 12:30 | NUR ---
DR CAROLINA AT BEDSIDE
--- NOTE | 2019-03-23 13:10 | NUR ---
2ND 3000 ML IRRIAGTION DONE AT THIS TIME. 3700 ML OF LIGHT RED URINE DRAINED FROM PT BLADDER AT THIS TIME.
--- NOTE | 2019-03-23 13:30 | NUR ---
1000 ML OF NS IRRIGATION STARTED AT THIS TIME.
--- OUTSIDE RECORDS SUMMARY | 2019-03-23 13:40 | XMS REPORT | Continuity of Care Document ---
Author Organization Unknown Address Unknown Allergies Active Description Code Type Severity Reaction Onset Reported/Identified Relationship to Patient Clinical Status Yes NEOPORACIN [id number] BRANDNAME N/A N/A Yes E.E.S. 200 E.E.S. [...] 34.6 g/dL 32.0-36.0 MCV 93.7 fL 80.0-97.0 Drew% 7.5 % 0.0-12.0 MPV 12.9 fL 7.4-10.0 Soila% 63.4 % 37.0-80.0 Plt 108 K/uL 150-400 RBC 4.13 M/uL 4.20-5.40 RDW 12.9 % 11.6-14.8 WBC 6.41 K/uL 5.00-10.00 Soila 4.06 K/uL 2.00-6.90 Drew 0.5 K/uL 0.0-0.9 Baso 0.0 K/uL 0.0-0.2 [...] 12/18/18 09:50 Bacterial blood culture NG NRG Complete blood count (CBC) with automated white blood cell (WBC) differential - 03/23/19 08:51 Blood leukocytes automated count (number/volume) 5.9 10*3/uL 4.3-11.0 Blood erythrocytes automated count (number/volume) 4.42 10*6/uL 4.35-5.85 Venous blood hemoglobin measurement (mass/volume) 14.1 g/dL 13.3-17.7 Blood hematocrit (volume fraction) 41 % 40-54 Automated erythrocyte mean corpuscular volume 93 [foz_us] 80-99 Automated erythrocyte mean corpuscular hemoglobin (mass per erythrocyte) 32 pg 25-34 Automated erythrocyte mean corpuscular hemoglobin concentration measurement (mass/volume) 35 g/dL 32-36 Automated erythrocyte distribution width ratio 13.9 % 10.0- 14.5 Automated blood platelet count (count/volume) 113 10*3/uL 130-400 Automated blood platelet mean volume measurement 11.8 [foz_us] 7.4-10.4 Automated blood neutrophils/100 leukocytes 69 % 42-75 Automated blood lymphocytes/100 leukocytes 17 % 12-44 Blood monocytes/100 leukocytes 9 % 0-12 Automated blood eosinophils/100 leukocytes 4 % 0-10 Automated blood basophils/100 leukocytes 1 % 0-10 Blood neutrophils automated count (number/volume) 4.1 10*3 1.8-7.8 Blood lymphocytes automated count (number/volume) 1.0 10*3 1.0-4.0 Blood monocytes automated count (number/volume) 0.5 10*3 0.0- 1.0 Automated eosinophil count 0.3 10*3/uL 0.0-0.3 Automated blood basophil count (count/volume) 0.0 10*3/uL 0.0-0.1 Comprehensive metabolic panel - 03/23/19 08:51 Serum or plasma sodium measurement (moles/volume) 137 mmol/L 135-145 Serum or plasma potassium measurement (moles/volume) 4.1 mmol/L 3.6-5.0 Serum or plasma chloride measurement (moles/volume) 105 mmol/L 98-107 Carbon dioxide 21 mmol/L 21-32 Serum or plasma anion gap determination (moles/volume) 11 mmol/L 5-14 Serum or plasma urea nitrogen measurement (mass/volume) 28 mg/dL 7-18 Serum or plasma creatinine measurement (mass/volume) 0.98 mg/dL 0.60-1.30 Serum or plasma urea nitrogen/creatinine mass ratio 29 NRG Serum or plasma creatinine measurement with calculation of estimated glomerular filtration rate > NRG Serum or plasma glucose measurement (mass/volume) 108 mg/dL 70-105 Serum or plasma calcium measurement (mass/volume) 9.3 mg/dL 8.5-10.1 Serum or plasma total bilirubin measurement (mass/volume) 0.4 mg/dL 0.1-1.0 Serum or plasma alkaline phosphatase measurement (enzymatic activity/volume) 72 U/L 40-136 Serum or plasma aspartate aminotransferase measurement (enzymatic activity/volume) 17 U/L 5-34 Serum or plasma alanine aminotransferase measurement (enzymatic activity/volume) 19 U/L 0-55 Serum or plasma protein measurement (mass/volume) 6.5 g/dL 6.4-8.2 Serum or plasma albumin measurement (mass/volume) 4.2 g/dL 3.2-4.5 CALCIUM CORRECTED 9.1 mg/dL 8.5-10.1 Complete urinalysis with reflex to culture - 03/23/19 09:23 Urine color determination RED NRG Urine clarity determination BLOODY NRG Urine pH measurement by test strip 7 5-9 Specific gravity of urine by test strip 1.015 1.016-1.022 Urine protein assay by test strip, semi-quantitative 4+ NEGATIVE Urine glucose detection by automated test strip NEGATIVE NEGATIVE Erythrocytes detection in urine sediment by light microscopy 4+ NEGATIVE Urine ketones detection by automated test strip NEGATIVE NEGATIVE Urine nitrite detection by test strip NEGATIVE NEGATIVE Urine total bilirubin detection by test strip NEGATIVE NEGATIVE Urine urobilinogen measurement by automated test strip (mass/volume) NORMAL NORMAL Urine leukocyte esterase detection by dipstick NEGATIVE NEGATIVE Automated urine sediment erythrocyte count by microscopy (number/high power field) TNTC NRG Automated urine sediment leukocyte count by microscopy (number/high power field) [HPF] NRG Bacteria detection in urine sediment by light microscopy NEGATIVE NRG Crystals detection in urine sediment by light microscopy NONE NRG Casts detection in urine sediment by light microscopy NONE NRG Mucus detection in urine sediment by light microscopy NEGATIVE NRG Complete urinalysis with reflex to culture NO NRG Encounters ACCT No. Visit Date/Time Discharge Status Pt. Type Provider Facility Loc./Unit Complaint [id number] 02/16/2017 14:17:02 02/16/2017 23:59:59 CLS [place]patient [place] [id number] 06/21/2018 13:05:00 06/21/2018 23:59:00 DIS Outpatient HERRERA BADILLO [id number] 04/05/2018 15:01:00 04/05/2018 23:59:00 DIS Outpatient HERRERA BADILLO [id number] 03/21/2018 18:10:00 03/21/2018 23:59:00 DIS Outpatient HERRERA BADILLO [id number] 03/13/2018 11:40:00 03/13/2018 23:59:00 DIS Outpatient Christine Clements [id number] 01/30/2018 09:09:00 01/30/2018 23:59:00 DIS Outpatient Priscila Keating [id number] 06/02/2017 00:00:00 06/02/2017 23:59:00 DIS Outpatient HERRERA BADILLO [id number] 05/16/2017 00:00:00 05/16/2017 23:59:00 DIS Outpatient BADILLOHERRERA [id number] 11/23/2016 11:23:00 11/23/2016 23:59:00 DIS Outpatient HERRERA BADILLO [id number] 11/08/2016 09:40:00 11/08/2016 23:59:00 DIS Outpatient HERRERA BADILLO [id number] 12/18/2018 09:02:00 12/18/2018 10:37:00 DIS Emergency ROSARIO MICHELE, ELSI Bowser [facility] ER PAIN IN LOWER BACK/ LAGOS CATHETER PROBLEMS [id number] 08/10/2018 10:03:00 08/10/2018 10:52:00 DIS Outpatient HERRERA BADILLO MD [facility] REHAB CHRONIC LBP; DDD [id number] 03/23/2019 09:38:00 Document Registration [id number] 11/16/2018 10:25:43 Document Registration [id number] 04/17/2018 14:15:52 Document Registration [id number] 04/05/2018 15:14:47 Document Registration [id number] 10/25/2017 10:07:02 Document Registration
--- NOTE | 2019-03-23 14:20 | NUR ---
1000 ML IRRIGATION DONE INFUSING. 1500 ML OF LIGHT RED URINE EMPTIED FROM PT LAGOS BAG AT THIS TIME.
[2019-03-23 14:25] VITALS: BP 144/63
--- NOTE | 2019-03-23 14:25 | NUR ---
ROBBIE BARAJAS admitted to room 410-1, with an admitting diagnosis of HEMATURIA, on 03/23/19 from ED via , accompanied by STAFF. ROBBIE BARAJAS introduced to surroundings, call light, bed controls, phone, TV, temperature control, lights, meal times, smoking policy, visitor policy, side rail policy, bathrooms and showers. ROBBIE BARAJAS verbalizes understanding that [facility] is not responsible for the loss or damage to any personal effects or valuables that are kept in the patients posession during their hospitalization. The following Patient Care Plans were discussed with the PT: Discharge Planning, UTI, AND PAIN. ROBBIE BARAJAS verbalizes understanding of Interdisciplinary Patient Education. Patient and/or family were informed about the Rapid Response Team and its purpose.
[2019-03-23] MEDS ORDERED: VIT1CAPS44 PO (14:55)
[2019-03-23] MEDS ORDERED: ROSU40TA22 PO (14:55)
[2019-03-23] MEDS ORDERED: HYDR25TA4 PO (14:55)
[2019-03-23] MEDS ORDERED: LISI40TA PO (14:55)
[2019-03-23] MEDS ORDERED: TAMS0.4C98 PO (14:55)
[2019-03-23] MEDS ORDERED: LORA10TA7 PO (15:11)
[2019-03-23] MEDS ORDERED: ASPI-983 PO (15:11)
[2019-03-23] MEDS ORDERED: NS IV 1000 ML 1,000 ML ONE (15:21)
[2019-03-23] MEDS ORDERED: PROP10DR2 OU (15:26)
--- NOTE | 2019-03-23 15:29 | NUR ---
SPOKE WITH PATIENT WELL GOING THRU THE EXTERNAL MED HISTORY. HCTZ 25MG IS PRESCRIBED ONCE DAILY, BUT PATIENT SAYS HE IS NOW CUTTING IN /2 FOR A 12.5 MG DOSE. OTC MEDICATIONS: PRESERVISION AREDS 2, 1 T BID ASPIRIN 81 MG 1 T Q 48 HOURS LORATADINE 10 MG 1 DAILY FERROUS SULFATE 325 1 T TID ALEVE 22MG PRN TYLENOL 1000 PRN ZANTAC 150 BID PRN
[2019-03-23] MEDS ORDERED: CATHETER FLUSH 10 ML SYR IV PRN (16:15)
[2019-03-23] MEDS ORDERED: ONDANSETRON 4 MG/2 ML (SDV) Z0FRAN IV PRN (16:15)
[2019-03-23] MEDS ORDERED: fentaNYL INJECTION 100 MCG/2 ML AMP IV PRN (16:15)
[2019-03-23] MEDS ORDERED: KETOROLAC 15 MG/ML VIAL IV PRN (16:15)
[2019-03-23 17:00] VITALS: BP 130/64
[2019-03-23] MEDS: NS IV 1000 ML 1,000 ML IV SCH (17:08)
[2019-03-23 18:45] VITALS: BP_SYST 14
[2019-03-23 21:00] VITALS: BP 117/63
[2019-03-23] MEDS ORDERED: TAMSULOSIN 0.4 MG (FLOMAX) CAP PO SCH (21:00)
[2019-03-24] VITALS: BP 120/69
[2019-03-24 04:42] VITALS: BP 103/62
[2019-03-24 05:29] LABS: BASOPHILS % (AUTO) 0 % (0-10); EOSINOPHILS # (AUTO) 0.4 10^3/uL (0.0-0.3); EOSINOPHILS % (AUTO) 5 % (0-10); HEMATOCRIT 36 % (40-54); HEMOGLOBIN 12.1 G/DL (13.3-17.7); LYMPHOCYTES # (AUTO) 1.2 X 10^3 (1.0-4.0); LYMPHOCYTES % (AUTO) 16 % (12-44); MEAN CORPUSCULAR HEMOGLOBIN 31 PG (25-34); MEAN CORPUSCULAR HGB CONC 34 G/DL (32-36); MEAN CORPUSCULAR VOLUME 94 FL (80-99); MEAN PLATELET VOLUME 11.9 FL (7.4-10.4); MONOCYTES # (AUTO) 0.7 X 10^3 (0.0-1.0); MONOCYTES % (AUTO) 10 % (0-12); NEUTROPHILS # (AUTO) 5.3 X 10^3 (1.8-7.8); NEUTROPHILS % (AUTO) 69 % (42-75); PLATELET COUNT 99 10^3/uL (130-400); RED CELL DISTRIBUTION WIDTH 13.6 % (10.0-14.5); WHITE BLOOD COUNT 7.7 10^3/uL (4.3-11.0)
[2019-03-24 05:49] LABS: ALANINE AMINOTRANSFERASE 17 U/L (0-55); ALBUMIN 3.4 GM/DL (3.2-4.5); ALKALINE PHOSPHATASE 57 U/L (40-136); BILIRUBIN,TOTAL 0.4 MG/DL (0.1-1.0); BUN/CREATININE RATIO 30; CALCIUM 8.5 MG/DL (8.5-10.1); CARBON DIOXIDE 23 MMOL/L (21-32); CHLORIDE 111 MMOL/L (98-107); CREATININE SERUM 0.88 MG/DL (0.60-1.30); GFR ESTIMATED > 60; GLUCOSE 97 MG/DL (70-105); POTASSIUM 4.2 MMOL/L (3.6-5.0); SODIUM 142 MMOL/L (135-145); TOTAL PROTEIN 5.2 GM/DL (6.4-8.2)
[2019-03-24] MEDS: NS IV 1000 ML 1,000 ML IV SCH (06:22)
[2019-03-24 08:00] VITALS: BP 112/65
[2019-03-24] MEDS: FINASTERIDE (PROSCAR) 5 MG TAB PO SCH (09:19)
--- NOTE | 2019-03-24 10:00 | NUR ---
CBI stopped per Dr. Garza order, continue monitoring
--- NOTE | 2019-03-24 10:12 | Progress Note-Urology ---
Progress Note-Urology Progress Notes/Assess & Plan Progress/Assessment & Plan AFEBRILE, VSS. URINE CLEAR. TOLERATES PO WELL.PLAN PER ORDERS Final Diagnosis GROSS HEMATURIA TARIQ CAROLINA MD Mar 24, 2019 10:12
--- NOTE | 2019-03-24 11:06 | History & Physical-Hospitalist ---
History of Present Illness HPI/Chief Complaint Pt presents to ED this morning c/o significant blood in his urine since Tuesday night. He waited until today to come in because he was in [place] this week and hoped to get an appointment with Dr. oBrrero. He is in no appreciable pain, just notes some slight bladder irritation and occasional dull right flank pain. Pt reports that he also had blood in his urine in November 2018, which was suspected to be a UTI. After treatment, the bloody urine resolved and he has had no episodes until this one. He describes today's urine as far more bloody than in November, even noting blood clots this morning. Reports no inciting event or trauma. Denies urinary urgency, burning, or fever. Denies chest pain, SOB, or abdominal pain. Pt takes low dose aspirin every other day, but denies the use of blood thinners. He does have a long history of thrombocytopenia, which has been extensively worked up by oncology. For me he denied chills fever or any change in baseline energy level night sweats dysuria or increasing frequency. He had been taking Aleve unknown dose started 3 weeks ago twice a day and over the past several days it been down to daily with an aspirin every other day. He has history of coronary artery disease has 1 stent which was placed to his recollection about 10 years ago with no acute problems since. He had a cardiac catheterization he believes about 2 years ago that revealed patent stents in no other significant reported coronary disease. Date Seen 03/24/19 Time Seen by a Provider: 08:30 Attending Physician Sana Collazo MD PCP Jayashree Arroyo MD Referring Physician Date of Admission Mar 23, 2019 at 12:15 Home Medications & Allergies Home Medications Reviewed patient Home Medication Reconciliation performed by pharmacy medication reconciliations heating and cooling technician and/or nursing. Patients Allergies have been reviewed. Allergies Allergies Uncoded Allergies MYCINS ( Allergy, Unknown, 10/02/12) Past Spqgbte-Xcjshf-Kdfjuz Hx Past Med/Social Hx: Reviewed Nursing Past Med/Soc Hx, Reviewed and Corrections made Patient Social History Alcohol Use: Denies Use Recreational Drug Use: No Smoking Status: Current Everyday Smoker (65 yr Hx; 1/2 ppd) Type Used: Cigarettes 2nd Hand Smoke Exposure: No Physical Abuse Screen: No Sexual Abuse: No Recent Foreign Travel: No Contact w/other who traveled: No Recent Hopitalizations: No Recent Infectious Disease Expo: No Immunizations Up To Date Tetanus Booster (TDap): Unknown Date of Pneumonia Vaccine: Jun 26, 2011 Date of Influenza Vaccine: Jun 26, 2012 Seasonal Allergies Seasonal Allergies: No Past Medical History Surgeries: Cardiac (stent), Gallbladder, Orthopedic Cardiac: High Cholesterol, Hypertension Reproductive: No Sexually Transmitted Disease: No HIV/AIDS: No Genitourinary: Prostate Problems (BPH), Bladder Infection Musculoskeletal: Chronic Back Pain HEENT: Cataract Loss of Vision: Denies Hearing Impairment: Denies History of Blood Disorders: No Adverse Reaction to Blood Shankar: No Family History Reviewed Nursing Family Hx Review of Systems Constitutional: no symptoms reported, see HPI, chills, diaphoresis, dizziness, fever, malaise, weakness Respiratory: see HPI; No cough, No dyspnea on exertion, No hemoptysis, No orthopnea, No phlegm, No short of breath Cardiovascular: No no symptoms reported; see HPI; No chest pain; edema (baseline reportedly mild edema), Hx of Intervention; No palpitations, No syncope; vascular heart diseas; No other Physical Exam Physical Exam Vital Signs Vital Signs - First Documented 03/23/19 09:25 Temp 97.8 Pulse 82 Resp 20 B/P (MAP) 140/70 (93) Pulse Ox 97 Capillary Refill : Less Than 3 SecondsLess Than 3 Seconds Height, Weight, BMI Height: 6'3.00" Weight: 224lbs. 4.0oz. 101.046113zi; 25.1 BMI Method:Stated General Appearance: No Apparent Distress, WD/WN Neck: Full Range of Motion, Normal Inspection, Non Tender Respiratory: Chest Non Tender, Lungs Clear, Normal Breath Sounds, No Accessory Muscle Use, No Respiratory Distress Cardiovascular: Regular Rate, Rhythm, No Edema, No Gallop, No JVD, Normal Peripheral Pulses, Systolic Murmur (holosystolic heard best at the apex 2-3/6 no S3 or S4 appreciated.) Gastrointestinal: Normal Bowel Sounds, No Organomegaly, No Pulsatile Mass, Non Tender, Soft Extremity: Normal Range of Motion, Non Tender, No Calf Tenderness, Pedal Edema (one plus the mid tibia with chronic venous insufficiency changes to the mid tibia bilaterally no evidence for source ulceration no pain.) Neurologic/Psychiatric: Alert, Oriented x3, No Motor/Sensory Deficits, Normal Mood/Affect Results Results/Procedures Labs Laboratory Tests 03/23/19 08:51 03/24/19 05:05 Patient resulted labs reviewed. Assessment/Plan Admission Diagnosis A/P 1. Gross hematuria suspect noninfectious etiology although agree with continuing antibiotic therapy. He is responding well to CBI. Per urology has had a CT scan of the abdomen and pelvis and cystoscopy with no evidence for malignancy. Combination of Aleve and aspirin bleeding risk factors he was told to hold both medication. Would try to avoid all anti-inflammatory medication although if significant indication for in the future would consider Celebrex. He was told to call his bar tacker on Tuesday but my advice was to stay off aspirin for a minimum of a week. Discussed Tylenol only for pain as needed. urine culture pending. 2. Reported significant BPH. 3. History of coronary artery disease currently stable. Admission Status: Inpatient Order (span 2 midnights) Reason for Inpatient Admission: see admission diagnosis Clinical Quality Measures DVT/VTE Risk/Contraindication: Risk Factor Score Per Nursin RFS Level Per Nursing on Admit: 3=High SANA COLLAZO MD Mar 24, 2019 11:06
--- NOTE | 2019-03-24 11:09 | CONSULTATION REPORT ---
DATE OF SERVICE: 03/23/2019 ATTENDING PHYSICIAN: Dr. Collazo. SUMMARY: An 79-year-old white man known to me, reviewed his chart in my office, known to have BPH with prostatism, previous history of gross hematuria, and previous workup including cystoscopy was negative for bladder tumors. The patient is on Flomax b.i.d. and Proscar daily and was doing well until yesterday when he developed gross hematuria. The patient developed gross hematuria and then subsided, then had some clots and clot retention, presented to the emergency room. A catheter was inserted with recovery of 300 mL of gross hematuria with clots. The catheter was clotted. This was changed to another one and hooked to continuous bladder irrigation, which keep it nice and clear. The patient does not have any other complaints or symptoms. IMPRESSION: Gross hematuria. RECOMMENDATION: Admit for continuous bladder irrigation, antibiotic treatment. Continue the Flomax b.i.d. and Proscar daily and manage accordingly. Job ID: [id number] DocumentID: [id number] Dictated Date: 03/24/2019 10:35:59 Waste Salvager Date: 03/24/2019 11:08:53 Dictated By: TARIQ CAROLINA MD
[2019-03-24] MEDS: TAMSULOSIN 0.4 MG (FLOMAX) CAP PO SCH ×2 (11:12→20:08)
[2019-03-24] MEDS: cefTRIAXone 1,000 MG/SWFI 10 ML IV PUSH IV SCH ×2 (11:12)
[2019-03-24 12:00] VITALS: BP 124/67
[2019-03-24 15:29] VITALS: BP 120/58
[2019-03-24 19:33] VITALS: BP 116/62
[2019-03-25] VITALS: BP 104/59
[2019-03-25 04:00] VITALS: BP 113/64
[2019-03-25 08:00] VITALS: BP 111/63
[2019-03-25] MEDS: TAMSULOSIN 0.4 MG (FLOMAX) CAP PO SCH (08:34)
[2019-03-25] MEDS: FINASTERIDE (PROSCAR) 5 MG TAB PO SCH (08:35)
--- NOTE | 2019-03-25 08:35 | NUR ---
Pt refused morning medications because he took his own earlier this morning.
--- NOTE | 2019-03-25 09:48 | Progress Note-Urology ---
Progress Note-Urology Progress Notes/Assess & Plan Progress/Assessment & Plan DOING VERY WELL. URINE CLEAR. HOME AFTER VOIDING. INSTRUCTIONS GIVEN Final Diagnosis GROSS HEMATURIA TARIQ CAROLINA MD Mar 25, 2019 09:48
--- NOTE | 2019-03-25 09:53 | Discharge Inst-Urology ---
Discharge Inst-Urology Discharge Medications New, Converted, or Re-newed RX: Call to Patient Pharmacy Patient Instructions/Follow Up Plan DC [facility], once patient is voiding well with relatively clear urine, discharge. Office Tuesday at 2:30pm Keep bowels soft and moving Stay off ASA Increase oral fluids for 48 hours and then as needed. Diet and Activity as tolerated. If questions or concerns contact your physician Or seek help at emergency department. TARIQ CAROLINA MD Mar 25, 2019 09:53
[2019-03-25] MEDS: cefTRIAXone 1,000 MG/SWFI 10 ML IV PUSH IV SCH ×2 (10:25)
--- NOTE | 2019-03-25 11:20 | NUR ---
Prescription for Bactrim DS twice daily for 7 days called in to [facility]
--- NOTE | 2019-03-25 12:38 | Discharge Summary-Hospitalist ---
Diagnosis/Chief Complaint Date of Admission Mar 23, 2019 at 12:15 Date of Discharge Mar 25, 2019 at 11:20 Discharge Date: Mar 25, 2019 Admission Diagnosis A/P 1. Gross hematuria suspect noninfectious etiology although agree with continuing antibiotic therapy. He is responding well to CBI. Per urology has had a CT scan of the abdomen and pelvis and cystoscopy with no evidence for malignancy. Combination of Aleve and aspirin bleeding risk factors he was told to hold both medication. Would try to avoid all anti-inflammatory medication although if significant indication for in the future would consider Celebrex. He was told to call his commercial analyst on Tuesday but my advice was to stay off aspirin for a minimum of a week. Discussed Tylenol only for pain as needed. urine culture pending. 2. Reported significant BPH. 3. History of coronary artery disease currently stable. Discharge Summary Discharge Physical Exam Allergies: Uncoded Allergies: MYCINS (Allergy, Unknown, 10/02/12) Vitals & I&Os Vital Signs Date Time Temp Pulse Resp B/P (MAP) Pulse Ox O2 Delivery O2 Flow Rate FiO2 03/25/19 08:00 98.1 74 18 111/63 (79) 96 Room Air 03/23/19 18:45 21 General Appearance: No Apparent Distress, WD/WN Respiratory: Chest Non Tender, Lungs Clear, Normal Breath Sounds, No Accessory Muscle Use, No Respiratory Distress Cardiovascular: Regular Rate, Rhythm, No Edema, No Gallop, No JVD, Normal Peripheral Pulses Gastrointestinal: Normal Bowel Sounds, No Organomegaly, No Pulsatile Mass, Non Tender, Soft Hospital Course Was the Problem List Reviewed?: Yes A she was admitted for management including CBI for rather abrupt onset of gross hematuria. Previous workup including CT scan of the abdomen and pelvis as well as cystoscopy for Dr. Borrero revealed significant BPH with no evidence for underlying neoplasia.he did not have any infectious symptoms but Rocephin was initiated. Cultures were negative for infection at the time of discharge. His urine cleared. He is reportedly able to void by staff. While his home medications just listed as aspirin is been discontinued I told the patient to discontinue Naprosyn as well. If anti-inflammatory therapy is deemed to be necessary would advise Celebrex to decrease risk for bleeding. Labs (last 24 hrs) Microbiology 03/23/19 Urine Culture - Final, Complete NO GROWTH Patient resulted labs reviewed. Discussion & Recommendations Discharge Planning: <30 minutes discharge planning Discharge Home Medications: Active Scripts Active Reported Systane Ultra 0.4-0.3% Eye Drp (Propylene Glycol/Peg 400) 10 Ml Drops 1 Drop OU BID Loratadine 10 Mg Tablet 10 Mg PO DAILY Preservision Areds 2 Softgel (Vit C/E/Zn/Coppr/Lutein/Zeaxan) 1 Each Capsule 1 Cap PO BID Flomax (Tamsulosin HCl) 0.4 Mg Cap 0.4 Mg PO BID Lisinopril 40 Mg Tablet 40 Mg PO DAILY Hydrochlorothiazide 25 Mg Tablet 12.5 Mg PO DAILY TAKES 1/2 OF A 25 MG (12.5MG) Rosuvastatin Calcium 40 Mg Tablet 40 Mg PO 1800 Cardura (Doxazosin Mesylate) 2 Mg Tablet 2 Mg PO BID Proscar (Finasteride) 5 Mg Tablet 5 Mg PO DAILY Aleve (Naproxen Sodium) 220 Mg Capsule 440 Mg PO Q12H PRN Tylenol Extra Strength (Acetaminophen) 500 Mg Tablet 100 Mg PO Q6H PRN Zantac (Ranitidine HCl) 150 Mg Tablet 150 Mg PO BID PRN Ferrous Sulfate 325 Mg Tablet.dr 325 Mg PO TID Instructions to patient/family Please see electronic discharge instructions given to patient. Clinical Quality Measures DVT/VTE Risk/Contraindication: Risk Factor Score Per Nursin RFS Level Per Nursing on Admit: 3=High Copy Copies To 1: HERRERA BADILLO MD, MARK D MD Mar 25, 2019 12:38
== END 2019-03-25 11:20 | disposition home or self-care (01) | DRG 696 ==
LOC: EDUNIT# 08:34 → ER 08:35 → 4TH 12:15
PROVIDERS: ADMIT Internal Medicine; ATTEND Internal Medicine
DX: R31.0 Gross hematuria (principal); N40.0 Benign prostatic hyperplasia without lower urinary tract symptoms; I10 Essential (primary) hypertension; F17.210 Nicotine dependence, cigarettes, uncomplicated; E78.00 Pure hypercholesterolemia, unspecified; I25.10 Atherosclerotic heart disease of native coronary artery without angina pectoris; I87.2 Venous insufficiency (chronic) (peripheral); M54.9 Dorsalgia, unspecified; Z95.5 Presence of coronary angioplasty implant and graft
CPT/HCPCS: 36415; 51702; 80053; 81000; 85025; 87088; 94760

== ENCOUNTER → 2019-04-03 | Outpatient (CLI) | payer MEDICARE ==
[~2019-04-03] MED LIST changes: +ACET-2267 PO; +ASPI-983 PO; +DOXA2TAB PO; +FINA5TAB PO; +HYDR25TA4 PO; +LORA10CA PO; +LORA10TA7 PO; +NAPR220C11 PO; +PROP10DR2 OU; +RANI150T46 PO; +ROSU40TA22 PO; +VIT1CAPS44 PO
--- NOTE | 2019-04-03 15:38 | Diagnostic Imaging Report ---
PROCEDURE: CT abdomen and pelvis without contrast. TECHNIQUE: Multiple contiguous axial images were obtained through the abdomen and pelvis without the use of intravenous contrast. Auto Exposure Controls were utilized during the CT exam to meet ALARA standards for radiation dose reduction. INDICATION: Hematuria. FINDINGS: No comparison available. Limited views of the lower thorax are normal. There is a cyst in hepatic segment VII. Another cyst is seen in segment II. Gallbladder is absent. No biliary ductal dilation. Pancreas, spleen, and adrenal glands are normal. No renal stones are seen. No hydronephrosis. No ureteral calculi. Urinary bladder is normal. There is a 3.4 x 2.9 cm soft tissue attenuating lesion in the interpolar zone of the right kidney. Prostate is enlarged. No dilated loops of large or small bowel. Appendix is normal. No abdominal or pelvic lymphadenopathy. There is atherosclerosis of the aorta and branch vessels but no aneurysm. No suspicious osseous lesions. IMPRESSION: 1. Soft tissue attenuating mass involving the interpolar zone of the right kidney. While this may represent a proteinaceous cyst, this is concerning for a renal cell neoplasm and a renal protocol CT or MRI is recommended. Dictated by: Dictated on workstation # [id number]
== END ==
LOC: RAD 14:55
PROVIDERS: ATTEND Urology
DX: N28.89 Other specified disorders of kidney and ureter (principal); R31.0 Gross hematuria
CPT/HCPCS: 74176

== ENCOUNTER → 2019-04-13 | Outpatient (CLI) | payer MEDICARE ==
[~2019-04-13] MED LIST changes: +HOLD METFORMIN - RECEIVED CONTRAST 20 ML VIAL IV SCH; +IOHEXOL 350 MG/ML 100 ML (OMNIPAQUE 350) VIAL IV ONE; +NS 100 ML (IVPB) BAG IV ONE
[2019-04-13 11:08] LABS: CREATININE SERUM 1.21 MG/DL (0.60-1.30)
--- NOTE | 2019-04-13 13:33 | Diagnostic Imaging Report ---
PROCEDURE: CT abdomen with contrast only. TECHNIQUE: Multiple contiguous axial images were obtained through the abdomen after the administration of intravenous contrast. Auto Exposure Controls were utilized during the CT exam to meet ALARA standards for radiation dose reduction. INDICATION: Renal mass. FINDINGS: Cortical low densities involving the right kidney are noted, largest anteriorly located measuring 2.9 cm. Evaluation for enhancement cannot be performed due to absence of precontrast imaging, however, overall density is similar on the arterial, venous and delayed phases. Additional renal cortical lesions are too small to characterize. No central retroperitoneal lymphadenopathy is seen. Liver contains a small low density in the right lobe posteriorly 11 mm in size and likely a cyst. Additional probable cyst in the left lobe is seen measuring 18 mm. The gallbladder is surgically absent. There is no biliary duct dilatation. The pancreas and spleen are unremarkable. No adrenal mass is seen. Aorta is non-aneurysmal. Bony structures are unremarkable. IMPRESSION: Right renal low density lesions. Unfortunately, determination for enhancement is difficult due to absence of precontrast imaging performed today. The precontrast study performed 10 days ago is not relevant in using Hounsfield unit measurements from that study. The dominant low-density lesion in the right kidney demonstrates higher density than a typical simple cyst. Again this may be owing to proteinaceous fluid within the lesion. Either followup CT imaging to confirm stability or performance of a renal ultrasound or renal MRI could be performed to evaluate for potential of a solid lesion. Dictated by: Dictated on workstation # [id number]
== END ==
LOC: RAD 10:39
PROVIDERS: ATTEND Urology
DX: N28.89 Other specified disorders of kidney and ureter (principal); Z90.49 Acquired absence of other specified parts of digestive tract
CPT/HCPCS: 36415; 74160; 82565; 84520

== ENCOUNTER 2020-07-01 05:41 | Outpatient (RCR) | payer MEDICARE ==
[~2020-07-01] VITALS: Ht 190.5 cm; Wt 98.1 kg
[~2020-07-01 05:41] MED LIST changes: +ASPI-1238 PO; -ASPI-983 PO; -HOLD METFORMIN - RECEIVED CONTRAST 20 ML VIAL IV SCH; -IOHEXOL 350 MG/ML 100 ML (OMNIPAQUE 350) VIAL IV ONE; -NS 100 ML (IVPB) BAG IV ONE; +RANI-613 PO; -RANI150T46 PO; -ROSU40TA22 PO; +ROSU40TA23 PO; -TAMS0.4C98 PO; +TMSL.4C PO
[2020-07-01 09:16] VITALS: BP 142/69
[2020-07-01 09:44] LABS: BASOPHILS % (AUTO) 1 % (0-10); EOSINOPHILS # (AUTO) 0.3 10^3/uL (0.0-0.3); EOSINOPHILS % (AUTO) 5 % (0-10); HEMATOCRIT 39 % (40-54); HEMOGLOBIN 13.2 g/dL (13.3-17.7); LYMPHOCYTES # (AUTO) 1.2 10^3/uL (1.0-4.0); LYMPHOCYTES % (AUTO) 21 % (12-44); MEAN CORPUSCULAR HEMOGLOBIN 32 pg (25-34); MEAN CORPUSCULAR HGB CONC 34 g/dL (32-36); MEAN CORPUSCULAR VOLUME 95 fL (80-99); MEAN PLATELET VOLUME 11.7 fL (9.0-12.2); MONOCYTES # (AUTO) 0.6 10^3/uL (0.0-1.0); MONOCYTES % (AUTO) 10 % (0-12); NEUTROPHILS # (AUTO) 3.7 10^3/uL (1.8-7.8); NEUTROPHILS % (AUTO) 63 % (42-75); PLATELET COUNT 110 10^3/uL (130-400); WHITE BLOOD COUNT 5.9 10^3/uL (4.3-11.0)
[2020-07-01 10:13] LABS: BUN/CREATININE RATIO 25; CALCIUM 9.4 MG/DL (8.5-10.1); CARBON DIOXIDE 25 MMOL/L (21-32); CHLORIDE 104 MMOL/L (98-107); GFR ESTIMATED > 60; GLUCOSE 90 MG/DL (70-105); SODIUM 139 MMOL/L (135-145)
== END 2020-07-01 12:26 | disposition home or self-care (01) ==
LOC: PREOP 05:41 → EDSTATUS 13:00
PROVIDERS: ATTEND Otolaryngology Otolaryngology/Facial Plastic Surgery
DX: Z01.818 Encounter for other preprocedural examination (principal); Z01.812 Encounter for preprocedural laboratory examination; L98.9 Disorder of the skin and subcutaneous tissue, unspecified; Z20.828 Contact with and (suspected) exposure to other viral communicable diseases
CPT/HCPCS: 80048; 85025; 87081; U0002; 36415; 87635; 93005

== ENCOUNTER 2020-07-03 07:45 | Day surgery (SDC) | payer MEDICARE ==
[~2020-07-03] VITALS: Ht 190.5 cm; Wt 98.1 kg
[2020-07-03] VITALS (12 sets, daily range): BP systolic 109–135; BP diastolic 50–75
[2020-07-03] MEDS: LACTATED RINGERS 1,000 ML IV PRN ×2 (08:25→11:30)
[2020-07-03] MEDS ORDERED: MUPIROCIN 2% OINT 22 GM (BACTROBAN) TUBE ONE (09:07)
[2020-07-03] MEDS ORDERED: LIDOCAINE/EPI 1%-1:100,000 (XYLOCAINE) 20ML ONE (09:07)
[2020-07-03] MEDS ORDERED: proPOfol 200 MG/20 ML (DIPRIVAN) VIAL IV ONE ×2 (09:48→11:59)
[2020-07-03] MEDS ORDERED: fentaNYL INJECTION 100 MCG/2 ML AMP ONE (09:48)
[2020-07-03] MEDS ORDERED: ONDANSETRON 4 MG/2 ML (SDV) Z0FRAN ONE (09:48)
[2020-07-03] MEDS ORDERED: LIDOCAINE PF 2% 5 ML (XYLOCAINE) VIAL ONE (09:48)
[2020-07-03] MEDS ORDERED: SEVOFLURANE (ULTANE) 15 ML INHAL SOLN ONE ×4 (09:48→11:55)
--- NOTE | 2020-07-03 09:48 | Progress Note-Pre Operative ---
Pre-Operative Progress Note H&P Reviewed The H&P was reviewed, patient examined and no changes noted. Date Seen by Provider: Jul 03, 2020 Time Seen by Provider: : Date H&P Reviewed: Jul 03, 2020 Time H&P Reviewed: :30 Pre-Operative Diagnosis: Right Cheek Lesion, Left Ear Lesion LYUDMILA REARDON MD Jul 03, 2020 09:48
[2020-07-03] MEDS ORDERED: MIDAZOLAM 2 MG/2 ML (VERSED) VIAL ONE (10:29)
--- NOTE | 2020-07-03 11:21 | Progress Note-Post Operative ---
Post-Operative Progess Note Surgeon (s)/Cork Tipper (s) Surgeon LYUDMILA REARDON MD Cork Tipper n/a Pre-Operative Diagnosis Right Cheek Lesion, Left Ear Lesion Post-Operative Diagnosis same Post-Op Procedure Note Date of Procedure: Jul 03, 2020 Name of Procedure Performed: Excsionb of Left Ear Lesion with Simple Repair, Excision of Right Cheek Leison with INtermiediate Repair Description & Findings Description and Findings: n/a Anesthesia Type gen LMA Estimated Blood Loss minimal Packing none. Specimen(s) collected/removed right cheek and left ear lesion for frozen LYUDMILA REARDON MD Jul 03, 2020 11:21
[2020-07-03] MEDS ORDERED: ROCURONIUM 10 MG/ML 5 ML SYRINGE IV ONE (11:24)
[2020-07-03] MEDS ORDERED: ACETAMINOPHEN 325 MG TABLET PO PRN (11:30)
[2020-07-03] MEDS ORDERED: HYDROcodone/APAP 5 MG/325 MG (LORTAB) TAB PO PRN (11:30)
[2020-07-03] MEDS ORDERED: PHENYLEPHRINE 100 MCG/ML 10 ML (ANESTHESIA) SYR ONE (12:10)
[2020-07-03] MEDS ORDERED: MEPERIDINE (DEMEROL) INJ 50 MG/ML IVP ONE (12:15)
[2020-07-03] MEDS ORDERED: morphine INJ 10 MG/ML 1ML (SYR OR VIAL) IVP ONE (12:15)
[2020-07-03] MEDS ORDERED: ONDANSETRON 4 MG/2 ML (SDV) Z0FRAN IVP PRN (12:15)
--- NOTE | 2020-07-03 13:06 | Anesthesia-General Post-Op ---
General Patient Condition Mental Status/LOC: Same as Preop Cardiovascular: Satisfactory Nausea/Vomiting: Absent Respiratory: Satisfactory Pain: Controlled Complications: Absent Post Op Complications Complications None Follow Up Care/Instructions Patient Instructions None needed. Anesthesia/Patient Condition Patient Condition Patient is doing well, no complaints, stable vital signs, no apparent adverse anesthesia problems. No complications reported per nursing. AYAZ LIZARRAGA CRNA Jul 03, 2020 13:06
[2020-07-03] MEDS ORDERED: ACHD5005 PO (13:43)
== END 2020-07-03 14:20 | disposition home or self-care (01) ==
LOC: SDC 07:45
PROVIDERS: ATTEND Otolaryngology Otolaryngology/Facial Plastic Surgery
DX: C44.229 Squamous cell carcinoma of skin of left ear and external auricular canal (principal); C44.329 Squamous cell carcinoma of skin of other parts of face; L90.5 Scar conditions and fibrosis of skin; I10 Essential (primary) hypertension; I25.10 Atherosclerotic heart disease of native coronary artery without angina pectoris; G47.33 Obstructive sleep apnea (adult) (pediatric); F17.210 Nicotine dependence, cigarettes, uncomplicated; N40.0 Benign prostatic hyperplasia without lower urinary tract symptoms; E04.1 Nontoxic single thyroid nodule; D64.9 Anemia, unspecified; Z79.899 Other long term (current) drug therapy; Z79.82 Long term (current) use of aspirin; Z88.1 Allergy status to other antibiotic agents; Z95.5 Presence of coronary angioplasty implant and graft; Z80.9 Family history of malignant neoplasm, unspecified
CPT/HCPCS: 88305; 88331; 88332

== ENCOUNTER → 2022-07-22 | Outpatient (CLI) | payer MEDICARE ==
[~2022-07-22] VITALS: Ht 187.9 cm; Wt 100.0 kg
[~2022-07-22] MED LIST changes: +ACETAMINOPHEN 500 MG TAB (TYLENOL) PO PRN; +ACHD5005 PO; +BEBTELOVIMAB 175 MG/2 ML VIAL IV ONE; +EPINEPHrine INJECTION 1 MG/ML AMP IM PRN; +LISI40TA9 PO; +ONDANSETRON 4 MG/2 ML (SDV) Z0FRAN IV PRN; +diphenhydrAMINE 50 MG/ML INJ (BENADRYL) IV PRN
[2022-07-22 10:05] VITALS: BP 149/60
== END ==
LOC: INFUSION 09:41
PROVIDERS: ATTEND Family Medicine
DX: U07.1 COVID-19 (principal)